=== PATIENT | female | born 1975 | race Hispanic/Latino ===

== ENCOUNTER 2020-05-31 17:30 | Emergency (ER) | payer SELFPAY ==
--- NOTE | 2020-05-31 17:43 | ER ---
Nurse's Notes [facility] Name: Yamile Cole Age: 45 yrs Sex: Female : 1975 Arrival Date: 05/31/2020 Time: 17:30 Bed Waiting Private MD: Diagnosis: Presentation: 05/31 17:33 Chief complaint: EMS states: were called out to [facility] to evaluate a pt who was iw accused by her of pulling out a gun and waving it around, pt denies that she had a gun, no weapon was found, pt denied suicidal or homicidal ideation, police wanted her checked out by a doctor before releasing her home. 17:33 Method Of Arrival: EMS: [facility] iw 17:34 Acuity: LISA 5 iw ED Course: 17:30 Patient arrived in ED. as 17:35 Triage completed. iw 17:42 Leyla Melara, RN is Primary Nurse. iw Administered Medications: No medications were administered Outcome: 17:41 Eloped from waiting room, pt sister and pt's daughters showed to ER lobby and stated iw that pt's was just trying to cause problems for her and that they all just wanted to go home, pt does not want to see a doctor 17:42 Patient left the ED. iw Signatures: Antoinette Leigh as Leyla Melara, RN RN iw Corrections: (The following items were deleted from the chart) 17:42 17:34 Acuity: LISA 4 iw iw
== END 2020-05-31 17:42 | disposition left against medical advice (07) ==
LOC: ER 17:30
DX: Z53.21 Procedure and treatment not carried out due to patient leaving prior to being seen by health care provider (principal)
CPT/HCPCS: 99282

== ENCOUNTER 2022-01-01 19:52 | Emergency (ER) | payer OTHER ==
--- OUTSIDE RECORDS SUMMARY | 2022-01-01 19:57 | XMS REPORT | Continuity of Care Document ---
:1975 Author Organization [facility] t Address [address] [place] [address] Care Team Providers Name Role Phone Unavailable Unavailable Unavailable Payers Payer Name Policy Type Policy Number Effective Date Expiration Date S ource Problems This patient has no known problems. Allergies, Adverse Reactions, Alerts Allergy Allergy Status Severity Reaction(s) Onset Inactive Treating Comm ents Source Name Type Date Date Clinician No Known DA Active U ERICK Allergie 03-29 Clear s 00:00: Palacio 00 [facility] Medications This patient has no known medications. Procedures This patient has no known procedures. Results Test Description Test Time Test Comments Results Result Comments Source SARS-CoV-2 (COVID-19), RT-PCR/TMA 2021-08-27 06:58:49 Test Item Value Reference Range Interpretation Comme nts SARS-CoV-2 INTERPRETATION POSITIVE SEE NOTE A S ARS-CoV-2 RNA DETECTEDPositive (test code = 95806) results are indicative of the presence of JUAN FRANCISCO S-CoV-2 RNA;clinical co rrelation with patient history and other diagnosticinfor mation is necessary to de termine patient infection statu s.Positive results do not rule out bacterial infection or co -infectionwith other viruses. Positive and negative predic tive values oftesting are h ighly dependent on prevalence. SOURCE (test code = 77942) NASOPHARYNGEAL Note: Methodology is Raymond Samara Real-Time RT-PC R. The expected result or ref erence range is NEGATIVE (Not D etected). For more information reg arding COVID-19 testing to incl ude clinicalinforma tion, methodology detail, intende d use, FDA authorization a ndrecommended fact sheets for cait ents or healthcare providers, see [facility] Announcement: S ARS-CoV-2 (COVID-19) by N AAT at URL below (note,fact shee ts are provided by method given in report:https:// www.mGaadi/cl inicians/client -communications/ Alternatively, see downloadable PDF fact sheet at:https://www. mGaadi/COVID- 19-RT-PCR UNLESS OTHERWISE INDICATED, ALL TESTING PERFORMED ATCLINICAL PATH OLOGY [facility], [place] [address] 4 LABORATORY DIRE CTOR: BRYON CACERES M.D. CLIA NUMBER [id number] [facility] [place]. [id number] - CT C-SPINE W/O [id number] 13:29:00 Name: PORFIRIO ALEJANDRA [facility] : 1975 Age/S: 43 / F [address] [place] [address] Unit #: [id number] Loc: [place] [id number] Phys: Hair Hung MD Acct: [id number] Dis Date: Status: REG ER PHONE #: [phone] Exam Date: 03/29/2019 1302 FAX #: [phone] Reason: fall EXAMS: CPTCODE: [id number] CT C-SPINE W/O CONT 89888 PROCEDURE: CT CERVICAL SPINE WITHOUT CONTRAST INDICATION: Neck pain after falling. COMPARISON: None. TECHNIQUE: Noncontrast helical imaging performed skull base through the cervicothoracic junction. Multiplanar reconstructions are available. CT imagingperformed at this location utilizes radiation dose optimization techniques which include one or more of the following: -Automated exposure control -Adjustment of the mA and/or kV according to patient size - Use of iterative reconstruction technique CT Radiation Dose DLP 211.73 mGy-cm FINDINGS: SKELETON: No fracture or malalignment through the cervicothoracic junction. The craniocervical junction is maintained. The atlantodental interspace is maintained. The intervertebral disc spaces are maintained. SOFT TISSUES: Survey of the intraspinal soft tissues is limited by this modality. No gross paraspinous edema. The pulmonary apices are clear. IMPRESSION: Negative CT cervical spine. END OF IMPRESSION [id number] at 1329 Reported and signed by: Ryne Aranda M.D. PAGE 1 Signed Report (CONTINUED) Name: PORFIRIO ALEJANDRA [place] : 1975 Age/S: 43 / F [address] [place] [address] Unit #: [id number] Loc: [place]A [place] [address] Phys: Hair Hung MD Acct: [id number] Dis Date: Status: REG ER PHONE #: [phone] Exam Date: 03/29/2019 1302 FAX #: [phone] Reason: fall EXAMS: CPT CODE: [id number] CT C-SPINE W/O CONT 39531 <Continued> CC: Hair Hung MD Technologist:Jer Perez, RT(R) CTDI: DLP: Trnscb Date/Time: 03/29/2019 (1329) [email or web address] Orig Print D/T: S: 03/29/2019 (2182) PAGE 2 Signed Report- CT HEAD/BRAIN W/O CONT 2019-03-29 13:28:00 Name: PORFIRIO ALEJANDRA [place] : 1975 Age/S: 43 / F [address] [place] [address] Unit #: [id number] Loc: Pat[place] [id number] Phys: Hair Hung MD Acct: [id number] Dis Date: Status: REG ER PHONE #: [phone] Exam Date: 03/29/2019 1302 FAX #: [phone] Reason: fall EXAMS: CPTCODE: [id number] CT HEAD/BRAIN W/O CONT 93629 STUDY: - CT HEAD/BRAIN W/O CONT 03/29/2019 12:38 PM Ordering Physician: Hair Hung MD Patient Name: PORFIRIO ALEJANDRA MR: [id number] : 1975; Age: 43 years y/o Female Clinical Indication: fall Comparison: None TECHNIQUE: Multiple contiguous transaxial noncontrast CT images were obtained through the head. Coronal and sagittal reformatted images were prepared. DOSE: CT imaging performed at this location utilizes radiation dose optimization technique which includes one or more of the followin)Automated exposure control; 2) Adjustment of the mA and/or kV according to patient's size; 3) Use of iterative reconstruction techniques. DLP (mGy-cm): 419 FINDINGS: BRAIN PARENCHYMA: The brain volume is appropriate for age. No evidence of acute intracranial hemorrhage, mass lesion, mass effect, midline shift, or extra-axial fluid collection. VENTRICLES: The lateral ventricles, third ventricle, fourth ventricle, and basilar cisterns are appropriate for degree of atrophy present. PARANASAL SINUSES: The visualized portions of the paranasal sinuses are clear. MASTOIDS: Clear. ORBITS: The visualized portions of the orbits are normal. SOFT TISSUES: No significant abnormality. SKULL: No acute fracture or suspicious osseous lesion. IMPRESSION: PAGE 1 Signed Report (CONTINUED) Name: PORFIRIO ALEJANDRA [facility] : 1975 Age/S: 43 / F [address] [place] [address] Unit #: [id number] Loc: [place] [address] Phys: Hair Hung MD Acct: [id number] Dis Date: Status: REG ERPHONE #: [phone] Exam Date: 03/29/2019 1302 FAX #: [phone] Reason: fall EXAMS: CPT CODE: [id number] CT HEAD/BRAIN W/O CONT 90266 <Continued> No acute intracranial abnormality. SL: AP-H at 1328 Reported and signed by: Дмитрий Bruno M.D. CC: Hair Hung MD Technologist:Jer Perez, RT(R) CTDI: DLP: Trnscb Date/Time: 03/29/2019 (9363) [email or web address] Orig Print D/T: S: 03/29/2019 (8454) PAGE 2 Signed Report- XR RIBS UNI 2 V [id number] 13:25:00 FAX: Hair Hung MD [place]: St: REG Name: PORFIRIO ALEJANDRA [facility] : 1975 Age/S: 43/F [address] [place] [address] Unit#: [id number] Loc: [place] [address] Phys: Hair Hung MD Acct: [id number] Dis Date: Status: REG ER PHONE #: [phone] Exam Date: 03/29/2019 1313 FAX #: [phone] Reason: fall rib pain EXAMS: CPT CODE: [id number] XR RIBS UNI [address] [place] [address] Clinical Indication: Fall, left rib pain. Comparison: None available. Impression: Left RIBS, 2 views. No acute fracture or dislocation. Soft tissues are unremarkable. SL: [id number] at 9367 Reported and signed by: Whitney Davila M.D. CC: Hair Hung MD Technologist: RT Estephania(Deborah) Trnscrd Date/Time/By: 03/29/2019 (4389) : By: [email or web address] Orig Print D/T: S: 03/29/2019 (9197) PAGE 1 Signed Report- XR CHEST 2 [id number] 13:23:00 FAX: Hair Hung MD [place]: St: REG Name: PORFIRIO ALEJANDRA [facility] [place] : 1975 Age/S: 43/F [address] [place] [address] Unit#: [id number] Loc: [place] [address] Phys: Hair Hung MD Acct: [id number] Dis Date: Status: REG ER PHONE #: [phone] Exam Date: 03/29/2019 1313 FAX #: [phone] Reason: fall EXAMS: CPT CODE: [id number] XR CHEST 2 V 72908 Clinical Indication: Fall. Comparison: None available. Impression: Chest, 2 views. Lungs are clear. No consolidation, pleural effusion, or pneumothorax. Cardiomediastinal silhouette is unremarkable. No acute osseous abnormality. SL: [id number] at 1323 Reported and signed by: Whitney Davila M.D. CC: Hair Hung MD Technologist: RT Estephania(Deborah) Trnscrd Date/Time/By: 03/29/2019 (1456) : By: [email or web address] Orig Print D/T: S: 03/29/2019 (8235) PAGE 1 Signed Report
--- NOTE | 2022-01-01 20:24 | EDPHYS ---
Physician Documentation [facility] Name: Yamile Cole Age: 46 yrs Sex: Female : 1975 Arrival Date: 01/01/2022 Time: 19:56 Bed Waiting Private MD: ED Physician Rei Rogers HPI: 01/01 20:24 This 46 yrs old Female presents to ER via Unassigned with complaints of Ear ms3 Pain. 20:24 The patient presents with a fullness, pain. The complaints affect the right ear. Onset: ms3 The symptoms/episode began/occurred 1 year(s) ago. Modifying factors: The symptoms are alleviated by nothing, the symptoms are aggravated by nothing. Associated signs and symptoms: The patient has no apparent associated signs or symptoms. Severity of symptoms: At their worst the symptoms were severe in the emergency department the symptoms are unchanged Pain is currently a 8 / 10. ROS: 20:24 Constitutional: Negative for fever, and chills. Eyes: Negative for injury, pain, ms3 redness, and discharge, Cardiovascular: Negative for chest pain, and palpitations. Respiratory: Negative for shortness of breath, cough, wheezing, and pleuritic chest pain, Abdomen/GI: Negative for abdominal pain, nausea, vomiting, diarrhea, and constipation, MS/Extremity: Negative for injury and deformity, Skin: Negative for injury, rash, and discoloration. 20:24 ENT: Positive for ear pain. 20:24 All other systems are negative. Exam: 20:24 Constitutional: This is a well developed, well nourished patient who is awake, alert, ms3 and in no acute distress. Head/Face: Normocephalic, atraumatic. Chest/axilla: Normal chest wall appearance and motion. Nontender with no deformity. Cardiovascular: Regular rate and rhythm with a normal S1 and S2. No gallops, murmurs, or rubs. Normal PMI, no JVD. No pulse deficits. Respiratory: Lungs have equal breath sounds bilaterally, clear to auscultation and percussion. No rales, rhonchi or wheezes noted. No increased work of breathing, no retractions or nasal flaring. Abdomen/GI: Soft, non-tender, with normal bowel sounds. No distension or tympany. No guarding or rebound. No evidence of tenderness throughout. Skin: Warm, dry with normal turgor. Normal color with no rashes, no lesions, and no evidence of cellulitis. Psych: Awake, alert, with orientation to person, place and time. Behavior, mood, and affect are within normal limits. 20:24 ENT: Ear canal(s): cerumen impaction, that is severe, that is hard, occluding the right ear canal. MDM: 20:24 Patient medically screened. ms3 20:24 Differential diagnosis: otitis media, cerumen impaction. Data reviewed: vital signs, ms3 nurses notes. Counseling: I had a detailed discussion with the patient and/or guardian regarding: the historical points, exam findings, and any diagnostic results supporting the discharge/admit diagnosis, the need for outpatient follow up, to return to the emergency department if symptoms worsen or persist or if there are any questions or concerns that arise at home. ED course: Discussed physical exam findings with patient. Patient to follow-up with primary care physician in 2 to 3 days. Patient understands and agrees with plan. All questions were answered. Return precautions discussed include worsening symptoms, or any other concerns.. Administered Medications: No medications were administered Disposition Summary: 01/01/22 20:24 Discharge Ordered Location: Home ms3 Condition: Stable ms3 Diagnosis - Impacted cerumen, right ear ms3 Followup: ms3 - With: Nela Dobson MD - When: 5 - 6 days - Reason: Recheck today's complaints Discharge Instructions: - Discharge Summary Sheet ms3 - Earwax Buildup, Adult ms3 Forms: - Medication Reconciliation Form ms3 - Thank You Letter ms3 - Antibiotic Education ms3 - Prescription Opioid Use ms3 Signatures: Rei Rogers, DO ms3
--- NOTE | 2022-01-01 20:30 | ER ---
Nurse's Notes [facility] Name: Yamile Cole Age: 46 yrs Sex: Female : 1975 Arrival Date: 01/01/2022 Time: 19:56 Bed Waiting Private MD: Diagnosis: Impacted cerumen, right ear Presentation: 01/01 20:29 Chief complaint: pt seen in lobby by Dr Rogers and discharged pt not seen by RN. bb ED Course: 19:56 Patient arrived in ED. ja2 20:06 Rei Rogers DO is Attending Physician. ms3 20:24 Nela Dobson MD is Referral Physician. ms3 Administered Medications: No medications were administered Outcome: 20:24 Discharge ordered by . ms3 20:30 Patient left the ED. bb Signatures: Divya Andrews RN RN bb Rei Rogers DO DO ms3 Yenifer Samayoa ja2
== END 2022-01-01 20:30 | disposition home or self-care (01) ==
LOC: ER 19:52
DX: H61.21 Impacted cerumen, right ear (principal)
CPT/HCPCS: 99281

== ENCOUNTER 2023-01-27 16:31 | Emergency (ER) | payer OTHER ==
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
[2023-01-27 17:17] LABS: Absolute Lymphocytes (CBC) 1.7 K/uL (0.7-4.9); Hematocrit 38.3 % (36.0-45.0); Lymphocytes % 19.6 % (15.3-44.8); MCV 88.9 fL (80-100); MPV 9.1 fL (7.6-11.3); RBC Red Blood Cell Count 4.31 M/uL (3.86-4.86)
[2023-01-27 17:36] LABS: BUN Blood Urea Nitrogen 16 mg/dL (7-18); Bicarbonate 25 mEq/L (21-32); Glomerular Filtration Rate 93 ml/min (=/>90); Glucose Level 99 mg/dL (74-106); Magnesium 2.2 mg/dL (1.6-2.4); NT PRO-BNP 148 pg/mL (<125); Potassium 3.4 mEq/L (3.5-5.1); Sodium Level 139 mEq/L (136-145)
[2023-01-27 17:38] LABS: Troponin High Sensitivity < 3.0 pg/mL (<58.9)
--- NOTE | 2023-01-27 18:42 | RAD REPORT ---
EXAM DESCRIPTION: RADChest Single View01/27/2023 5:02 pm CLINICAL HISTORY: CHEST PAIN COMPARISON: Chest For Pe Angio dated 01/27/2023 TECHNIQUE: Portable AP view of the chest. FINDINGS: The lungs are clear. No pneumothorax or effusion. The cardiomediastinal contours are unre markable. IMPRESSION: No acute cardiopulmonary process.
--- NOTE | 2023-01-27 19:10 | RAD REPORT ---
EXAM DESCRIPTION: CT - Chest For Pe Angio - 01/27/2023 6:08 pm CLINICAL HISTORY: Chest pain;SOB COMPARISON: Chest Single View dated 01/27/2023 TECHNIQUE: Thin axial CT images of the chest were obtained following administration of 100 mL Isovue 370 IV contrast. Multiplanar reconstructions, and maximum intensity projection reconstructions were generated and reviewed. Exam utilizes a protocol for optimal evaluation of pulmonary arterial tree. All CT scans are performed using dose optimization technique as appropriate and may include automated exposure control or mA/KV adjustment according to patient size. FINDINGS: Pulmonary arteries are normal. No emboli or other suspicious finding. No acute or signific ant aorta findings. No mass or infiltrate in the lung parenchyma. No pleural thickening or pleural effusion. No pneumotho rax. No abnormal mediastinal or hilar masses or lymphadenopathy seen. No chest wall mass or abnormal axill iary lymphadenopathy. IMPRESSION: No evidence of acute central pulmonary emboli. No other acute pulmonary process.
--- NOTE | 2023-01-27 20:33 | ER ---
Nurse's Notes [facility] Name: Yamile Cole Age: 47 yrs Sex: Female : 1975 Arrival Date: 01/27/2023 Time: 16:31 Bed 11 Private MD: Diagnosis: Chest pain, unspecified Presentation: 01/27 16:37 Chief complaint: Patient states: Feels tired, no energy for about 5 days, has checked nj1 her bp and its been anywhere between 80-94. Yesterday she started having chest pressure and trouble taking a deep breath. Coronavirus screen: Vaccine status: Patient reports receiving the 2nd dose of the covid vaccine. Ebola Screen: Patient denies travel to an Ebola-affected area in the 21 days before illness onset. Initial Sepsis Screen: Does the patient meet any 2 criteria? No. Patient's initial sepsis screen is negative. Does the patient have a suspected source of infection? No. Patient's initial sepsis screen is negative. Risk Assessment: Do you want to hurt yourself or someone else? Patient reports no desire to harm self or others. Onset of symptoms was January 22, 2023. 16:37 Method Of Arrival: Ambulatory [facility] 16:37 Acuity: LISA 3 nj1 Historical: - Allergies: 16:42 No Known Allergies; nj1 - PMHx: 16:42 Depressive disorder; nj1 - PSHx: 16:42 Appendectomy; Umbilical hernia repair; section; section; nj1 section; section; - Immunization history:: Client reports receiving the 2nd dose of the Covid vaccine. - Social history:: Smoking status: Patient denies any tobacco usage or history of. Screenin:11 [facility] ED Fall Risk Assessment (Adult) History of falling in the last 3 months, kc6 including since admission No falls in past 3 months (0 pts) Confusion or Disorientation No (0 pts) Intoxicated or Sedated No (0 pts) Impaired Gait No (0 pts) Mobility Assist Device Used No (0 pt) Altered Elimination No (0 pt) Score/Fall Risk Level 0 - 2 = Low Risk Oriented to surroundings, Maintained a safe environment, Educated pt \T\ family on fall prevention, incl call for assistance when getting out of bed, Assessed \T\ reinforced patient's understanding of fall precautions, Hourly rounding (assess needs \T\ fall precautionary measures) done. Abuse screen: Denies threats or abuse. Denies injuries from another. Nutritional screening: No deficits noted. Tuberculosis screening: No symptoms or risk factors identified. Assessment: 17:11 General: Appears in no apparent distress. comfortable, Behavior is calm, cooperative, kc6 appropriate for age. Pain: Complains of pain in chest Quality of pain is described as heavy, pressure. Neuro: Level of Consciousness is awake, alert, obeys commands, Oriented to person, place, time, situation, Appropriate for age. Cardiovascular: Reports chest pain, Heart tones S1 S2 present Capillary refill < 3 seconds Rhythm is sinus rhythm. Respiratory: Reports shortness of breath Airway is patent Trachea midline Respiratory effort is even, unlabored, Respiratory pattern is regular, symmetrical, Breath sounds are clear bilaterally. GI: No signs and/or symptoms were reported involving the gastrointestinal system. : No signs and/or symptoms were reported regarding the genitourinary system. EENT: No signs and/or symptoms were reported regarding the EENT system. Derm: No signs and/or symptoms reported regarding the dermatologic system. Skin is intact, Skin is pink, warm \T\ dry. Musculoskeletal: No signs and/or symptoms reported regarding the musculoskeletal system. Circulation, motion, and sensation intact. Capillary refill < 3 seconds, Range of motion: intact in all extremities. 18:24 Reassessment: Patient appears in no apparent distress at this time. No changes from kc6 previously documented assessment. Patient and/or family updated on plan of care and expected duration. Pain level reassessed. Patient is alert, oriented x 3, equal unlabored respirations, skin warm/dry/pink. 20:00 Reassessment: Patient appears in no apparent distress at this time. Patient and/or nj1 family updated on plan of care and expected duration. Pain level reassessed. Patient is alert, oriented x 3, equal unlabored respirations, skin warm/dry/pink. Patient denies pain at this time. Patient states feeling better. Patient states symptoms have improved. 20:45 Reassessment: No changes from previously documented assessment. nj1 Vital Signs: 16:37 BP 127 / 83; Pulse 72; Resp 18; Temp 98.8(O); Pulse Ox 100% on R/A; Weight 81.65 kg; nj1 Height 5 ft. 6 in. ; Pain 7/10; 20:00 BP 124 / 82; Pulse 69; Resp 16; Pulse Ox 100% on R/A; Pain 0/10; nj1 20:45 BP 136 / 82; Pulse 67; Resp 18; Pulse Ox 100% on R/A; Pain 0/10; nj1 16:37 Body Mass Index 29.05 (81.65 kg, 167.64 cm) nj1 16:37 Pain Scale: Adult nj1 20:00 Pain Scale: Adult nj1 20:45 Pain Scale: Adult nj1 ED Course: 16:34 Patient arrived in ED. im 16:35 Janny Rubio FNP-C is PHCP. kb 16:35 Glynn Tan MD is Attending Physician. kb 16:42 Triage completed. nj1 16:43 Arm band placed on left wrist. nj1 17:00 Chely South, RN is Primary Nurse. kc6 17:04 XRAY Chest (1 view) In Process Unspecified. EDMS 17:12 Patient has correct armband on for positive identification. Bed in low position. Call kc6 light in reach. Side rails up X 1. 17:12 Initial lab(s) drawn, by me, sent to lab. aw1 17:12 Inserted saline lock: 20 gauge in right antecubital area, using aseptic technique. aw1 18:10 CT Chest For PE Angio In Process Unspecified. EDMS 20:50 No provider procedures requiring assistance completed. IV discontinued, intact, nj1 bleeding controlled. Administered Medications: No medications were administered Medication: 20:51 VIS not applicable for this client. nj1 Outcome: 20:33 Discharge ordered by . kb 20:50 Discharged to home ambulatory, with family. nj1 20:50 Condition: stable 20:50 Discharge instructions given to patient, family, Instructed on discharge instructions, follow up and referral plans. Demonstrated understanding of instructions, follow-up care. 20:51 Patient left the ED. nj1 Signatures: Dispatcher [employer] EDMS Janny Rubio FNP-C FNP-Chely Brown, RN RN kc6 Roma Mayo RN RN nj1 Antonette Devi Francheska Hernandez aw1
--- NOTE | 2023-01-27 20:33 | EDPHYS ---
Physician Documentation [facility] Name: Yamile Cole Age: 47 yrs Sex: Female : 1975 Arrival Date: 01/27/2023 Time: 16:31 Bed 11 Private MD: ED Physician Glynn Tan HPI: 01/27 16:44 This 47 yrs old Female presents to ER via Ambulatory with complaints of kb Shortness Of Breath, Chest Pain. 16:44 The patient or guardian reports chest pain that is located primarily in the anterior kb chest wall, left. Onset: 5 day(s) ago. The pain does not radiate. Associated signs and symptoms: Pertinent positives: shortness of breath, weakness. The chest pain is described as a pressure. Duration: The patient or guardian reports a single episode. Modifying factors: The symptoms are alleviated by nothing. the symptoms are aggravated by deep breath. Severity of pain: At its worst the pain was mild moderate in the emergency department the pain is unchanged. The patient has not experienced similar symptoms in the past. The patient has not recently seen a physician. Pt reports she has felt weak for the past 5 days so she has been checking her BP and it has been low (80s-90s systolic). States she started having chest pressure yesterday that gets worse with inspiration. . Historical: - Allergies: 16:42 No Known Allergies; nj1 - PMHx: 16:42 Depressive disorder; nj1 - PSHx: 16:42 Appendectomy; Umbilical hernia repair; section; section; nj1 section; section; - Immunization history:: Client reports receiving the 2nd dose of the Covid vaccine. - Social history:: Smoking status: Patient denies any tobacco usage or history of. ROS: 16:44 Constitutional: Negative for fever, chills, and weight loss. kb 16:44 Cardiovascular: Positive for chest pain. 16:44 Respiratory: Positive for shortness of breath. 16:44 Neuro: Positive for weakness. 16:44 All other systems are negative. Exam: 16:44 Constitutional: This is a well developed, well nourished patient who is awake, alert, kb and in no acute distress. Head/Face: Normocephalic, atraumatic. ENT: Moist Mucous membranes Cardiovascular: Regular rate and rhythm with a normal S1 and S2. No gallops, murmurs, or rubs. No pulse deficits. Respiratory: Respirations even and unlabored. No increased work of breathing. Talking in full sentences Abdomen/GI: Soft, non-tender. No distention Skin: Warm, dry with normal turgor. Normal color. MS/ Extremity: Pulses equal, no cyanosis. Neurovascular intact. Full, normal range of motion. Neuro: Awake and alert, GCS 15, oriented to person, place, time, and situation. Moves all extremities. Normal gait. 17:14 ECG was reviewed by the Attending Physician. kb Vital Signs: 16:37 BP 127 / 83; Pulse 72; Resp 18; Temp 98.8(O); Pulse Ox 100% on R/A; Weight 81.65 kg; nj1 Height 5 ft. 6 in. ; Pain 7/10; 20:00 BP 124 / 82; Pulse 69; Resp 16; Pulse Ox 100% on R/A; Pain 0/10; nj1 20:45 BP 136 / 82; Pulse 67; Resp 18; Pulse Ox 100% on R/A; Pain 0/10; nj1 16:37 Body Mass Index 29.05 (81.65 kg, 167.64 cm) nj1 16:37 Pain Scale: Adult nj1 20:00 Pain Scale: Adult nj1 20:45 Pain Scale: Adult nj1 MDM: 16:36 Patient medically screened. kb 16:48 Data reviewed: vital signs, nurses notes. kb 20:32 Differential diagnosis: abnormal EKG, acute myocardial infarction, anxiety, coronary kb artery disease chest wall pain, congestive heart failure gastroesophageal reflux disease (GERD). Consideration of Admission/Observation Escalation of care including admission/observation considered. admission considered for chest pain, but serial troponin normal, EKG without acute findings and pt feeling better. Counseling: I had a detailed discussion with the patient and/or guardian regarding: the historical points, exam findings, and any diagnostic results supporting the discharge/admit diagnosis, lab results, radiology results, the need for outpatient follow up, a family practitioner, to return to the emergency department if symptoms worsen or persist or if there are any questions or concerns that arise at home. 01/27 16:39 Order name: Basic Metabolic Panel; Complete Time: 17:38 kb 01/27 16:39 Order name: CBC with Diff; Complete Time: 17:18 kb 01/27 16:39 Order name: D-Dimer; Complete Time: 17:24 kb 01/27 16:39 Order name: Magnesium; Complete Time: 17:38 kb 01/27 16:39 Order name: NT PRO-BNP; Complete Time: 17:38 kb 01/27 16:39 Order name: Troponin HS; Complete Time: 17:38 kb 01/27 19:14 Order name: Troponin High Sensitivity; Complete Time: 20:28 kb 01/27 16:39 Order name: XRAY Chest (1 view); Complete Time: 18:51 kb 01/27 17:25 Order name: CT Chest For PE Angio; Complete Time: 19:13 kb 01/27 16:39 Order name: EKG; Complete Time: 16:40 kb 01/27 16:39 Order name: Cardiac monitoring; Complete Time: 17:10 kb 01/27 16:39 Order name: EKG - Nurse/Tech; Complete Time: 17:10 kb 01/27 16:39 Order name: IV Saline Lock; Complete Time: 17:10 kb 01/27 16:39 Order name: Labs collected and sent; Complete Time: 17:10 kb 01/27 16:39 Order name: O2 Per Protocol; Complete Time: 17:10 kb 01/27 16:39 Order name: O2 Sat Monitoring; Complete Time: 17:10 kb EC:14 Rate is 68 beats/min. Rhythm is regular. QRS [place] is Normal. RI interval is normal at kb 148 msec. QRS interval is normal at 78 msec. QT interval is normal at 440 msec. Administered Medications: No medications were administered Disposition Summary: 01/27/23 20:33 Discharge Ordered Location: Home kb Condition: Stable kb Diagnosis - Chest pain, unspecified kb Followup: kb - With: Emergency Department - When: As needed - Reason: Worsening of condition Followup: kb - With: Private Physician - When: 2 - 3 days - Reason: Recheck today's complaints, Continuance of care, Re-evaluation by your physician Discharge Instructions: - Discharge Summary Sheet kb - Nonspecific Chest Pain, Adult, [id number] kb Forms: - Work release form kb - Medication Reconciliation Form kb - Thank You Letter kb - Antibiotic Education kb - Prescription Opioid Use kb - [email or web address] kb Addendum: 01/29/2023 10:54 I reviewed the patient's care provided by the Advanced Practice Provider and agree with j r11 the diagnosis and treatment plan. Signatures: Dispatcher [employer] Janny Duggan, DRY BOX OPERATOR-C DRY BOX OPERATOR-Glynn Tilley MD MD [id number] Rmoa Mayo RN RN nj1
[2023-01-27 21:23] VITALS: TEMP 98.8; O2SAT 100
[2023-01-27 21:27] VITALS: BP 136/82
--- NOTE | 2023-01-28 08:49 | EKG ---
Test Date: 2023-01-27 Test Time: 17:08:35 Montessori Teacher: LUIS MEASUREMENT RESULTS: Intervals: Rate: 68 IN: 148 QRSD: 78 QT: 414 QTc: 440 [place]: P: 62 IN: 148 QRS: 71 T: 58 INTERPRETIVE STATEMENTS: Normal sinus rhythm Low voltage QRS Borderline ECG No previous ECG available for comparison Electronically Signed On 01-28-23 08:47:37 CDT by Juan A Hill
== END 2023-01-27 20:51 | disposition home or self-care (01) ==
LOC: ER 16:31
DX: R07.89 Other chest pain (principal); R53.1 Weakness
CPT/HCPCS: 93005; 85025; 80048; 36415; 83735; 85379; 84484 ×2; 83880; 71275; 71045; 99284; Q9967